=== PATIENT | female | born 1970 | race African-American/Black ===

== ENCOUNTER 2017-05-10 16:51 | Emergency (ER) | payer SELFPAY ==
[~2017-05-10] VITALS: Ht 167.6 cm; Wt 77.1 kg
[2017-05-10] MEDS ORDERED: NKM (17:04)
[2017-05-10 17:33] VITALS: BP 136/77
[2017-05-10] MEDS ORDERED: Ketorolac 60mg Inj IM ONE (18:15)
--- NOTE | 2017-05-10 18:52 | Emergency Room Report ---
History of Present Illness General Chief Complaint: Back Pain-No Injury Source: Patient (Cece Sow) Present Illness HPI 47 YO Female presents to ED c/o left sided 10/10 in severity low back pain x 3 days. had colonic performed 3 days ago, has hx of sciatica. no trauma or falls.She denies abdominal tenderness or abdominal pain. Denies nausea, vomiting, diarrhea, constipation. Patient denies history of kidney stones. Denies dysuria, hematuria, radiation or migration of pain. Patient reports she also has posterior tenderness to palpation of the left side of the back Denies numbness tingling or loss of sensation or gross motor movements of the extremities, incontinence of bowel or bladder. Denies CP, Palpitations, LOC , AMS, dizziness, Changes in Vision, Sensation, paresthesias, or a sudden severe headache. (Cece Sow) Allergies: Uncoded Allergies: TB SKIN TEST (Allergy, Unknown, 05/10/17) Patient History Past Medical History: see triage record Past Surgical History: none Pertinent Family History: none Last Menstrual Period: hysterectomy 07/2014 Now: No : 2 Para: 2 Reviewed Nursing Documentation: PMH: Agreed; PSxH: Agreed (Cece Sow) Nursing Documentation-PMH Past Medical History: No History, Except For (Cece Sow) Review of Systems All Other Systems: negative except mentioned in HPI (Cece Sow) Physical Exam Vital Signs Date Time Temp Pulse Resp B/P (MAP) Pulse Ox O2 Delivery O2 Flow Rate FiO2 05/10/17 16:58 98.2 85 16 136/77 98 Room Air 98.2 Sp02 EP Interpretation: reviewed, normal General Appearance: no apparent distress, alert, GCS 15, non-toxic Head: normocephalic, atraumatic ENT: hearing grossly normal, normal voice Neck: full range of motion Respiratory: lungs clear, normal breath sounds, speaking full sentences Cardiovascular #1: regular rate, rhythm Gastrointestinal: normal bowel sounds, non tender, soft, no guarding Genitourinary: normal inspection, no CVA tenderness Musculoskeletal: back normal, gait/station normal, normal range of motion, tender - Moderate tenderness to palpation to paraspinal muscles of the lower back on the left side, no spinous process tenderness, no midline tenderness. Neurologic: alert, oriented x3, responsive, motor strength/tone normal, sensory intact, normal gait, speech normal, grossly normal Psychiatric: judgement/insight normal Skin: normal color, no rash, warm/dry, well hydrated (Cece Sow) Medical Decision Making PA Attestation Dr. Gutierrez is my supervising Physician whom patient management has been discussed with. (Cece Sow) Diagnostic Impression: Primary Impression: Back pain Qualified Codes: M54.5 - Low back pain ER Course 47 YO Female presents to ED c/o left sided 11/25 in severity low back pain x 3 days. had colonic performed 3 days ago, has hx of sciatica. no trauma or falls.She denies abdominal tenderness or abdominal pain. Denies nausea, vomiting, diarrhea, constipation. Patient denies history of kidney stones. Denies dysuria, hematuria, radiation or migration of pain. Patient reports she also has posterior tenderness to palpation of the left side of the back Denies numbness tingling or loss of sensation or gross motor movements of the extremities, incontinence of bowel or bladder. Denies CP, Palpitations, LOC , AMS, dizziness, Changes in Vision, Sensation, paresthesias, or a sudden severe headache. Denies hx of cancer or recent spinal procedures. pt. reports her symptoms may have started when she dropped soap on shower floor and reached down to pick it up. Ddx considered: bowel perforation, musculo-skeletal injury, epidural abscess, fracture, sprain/strain, meningitis, spinal chord injury. -History of physical exam are most consistent with muscular injury due to reproducible pain/tenderness upon palpation. Absence of fever or urinary symptoms. Vital signs reviewed and are WNL during ED visit. Pt. is afebrile with no signs of infection No new symptoms, and denies recent trauma. No saddle anesthesia noted, Pt. denies incontinence Neurovascular is intact no appreciable CVA tenderness. * Moderate tenderness to palpation to paraspinal muscles of the lower back on the left side, no spinous process tenderness, no midline tenderness. ORDERS: -Abdominal KUB x-ray: Unremarkable no evidence of free air. Nonspecific bowel gas pattern noted. INTERVENTIONS: - Toradol IM - Tramadol PO d/w pt. conservative treatment, and to follow up with a primary care provider. pt given a list of primary care clinics for follow up. d/w pt. to return to the ED with worsening or new symptoms. DISCHARGE: At this time pt. is stable for d/c to home. Will provide printed patient care instructions, and any necessary prescriptions. Care plan and follow up instructions have been discussed with the patient prior to discharge. (Cece Sow) Other X-Ray Diagnostic Results Other X-Ray Diagnostic Results : X-Ray ordered: KUB # of Views/Limited Vs Complete: 1 View Indication: Pain EP Interpretation: Yes PA Xray: Interpretation reviewed, by supervising MD, and agrees with findings. Interpretation: nonspecific bowel gas, no sbo - no free air noted. Impression: No acute disease Electronically Signed by: Cece Sow PA-C (Cece Sow) Other X-Ray Diagnostic Results : Electronically Signed by: Joana documentation reviewed by me and is accurate, Estevan Gutierrez MD. (Estevan Gutierrez M.D.) Last Vital Signs Date Time Temp Pulse Resp B/P (MAP) Pulse Ox O2 Delivery O2 Flow Rate FiO2 05/10/17 18:37 98.2 05/10/17 17:33 85 16 136/77 98 Room Air (Cece Sow.A.) Last Vital Signs Date Time Temp Pulse Resp B/P (MAP) Pulse Ox O2 Delivery O2 Flow Rate FiO2 05/10/17 19:06 98.2 85 16 136/77 98 Room Air 98.2 (Estevan Gutierrez M.D.) Disposition: HOME, SELF-CARE Condition: Stable Scripts Ibuprofen* (MOTRIN*) 600 Mg Tablet 600 MG ORAL THREE TIMES A DAY, #20 TAB 0 Refills Prov: Cece Sow P.A. 05/10/17 Lidocaine (Lidoderm) 1 Each Adh..patch 1 PATCH TOPIC DAILY, #30 PATCH 0 Refills Patch(es) may remain in place for up to 12 hours in any 24-hour period. Prov: Cece Sow P.A. 05/10/17 Methocarbamol* (ROBAXIN*) 500 Mg Tablet 1000 MG PO TID, #42 TAB 0 Refills Prov: Cece Sow P.A. 05/10/17 Referrals: NOT CHOSEN [facility]/,REFERRING (PCP) Departure Forms: Return to Work Return to Work Date: May 13, 2017 Work Restrictions: No Heavy Lifting, No Prolonged Standing Other Restrictions: light duty x 1 week. Return to Full Activity: May 20, 2017 Patient Instructions: Back Pain, Adult, Sciatica Additional Instructions: Take medications as directed. Follow up with a Primary Care Provider in 3-5 days, even if your symptoms have resolved. --Please review list of primary care clinics, if you do not already have a primary care provider Return sooner to ED if new symptoms occur, or current symptoms become worse. Do not drink alcohol, drive, or operate heavy machinery while taking Robaxin as this may cause drowsiness. - Please note that this Emergency Department Report was dictated using [employer] machinery mechanic technology software, occasionally this can lead to erroneous entry secondary to interpretation by the dictation equipment. Cece Sow May 10, 2017 18:52 Estevan Gutierrez M.D. May 11, 2017 06:12
[2017-05-10] MEDS ORDERED: LIDODERM700 M1 TOPIC (18:56)
[2017-05-10] MEDS ORDERED: IBUPROFEN600 MG ORAL (18:56)
[2017-05-10] MEDS ORDERED: ROBAXIN500 MG PO (18:56)
[2017-05-10] MEDS ORDERED: traMADol 50mg tab ORAL ONE (19:00)
[2017-05-10 19:06] VITALS: BP 136/77
--- NOTE | 2017-05-11 09:39 | Diagnostic Imaging Report ---
Indication: Abdominal pain Technique: Supine view of the abdomen Comparison: none Findings: The stomach appears to be filled with food. The bowel gas pattern is unremarkable. No unusual masses or calcifications. Impression: No acute process
== END 2017-05-10 19:07 | disposition home or self-care (01) ==
LOC: EMR 17:33
DX: M54.5 Low back pain (principal); Z90.710 Acquired absence of both cervix and uterus
CPT/HCPCS: 74018; 96372; 99284

== ENCOUNTER 2017-05-13 23:29 | Emergency (ER) | payer SELFPAY ==
[~2017-05-13] VITALS: Ht 167.6 cm; Wt 77.1 kg
[~2017-05-13 23:29] MED LIST: IBUPROFEN600 MG ORAL; LIDODERM700 M1 TOPIC; NKM; ROBAXIN500 MG PO
[2017-05-13 23:35] VITALS: BP 118/74
[2017-05-13] MEDS ORDERED: Methocarbamol 750mg tab ORAL ONE (23:45)
[2017-05-13] MEDS ORDERED: Ketorolac 30mg Inj IM ONE (23:45)
--- NOTE | 2017-05-13 23:48 | Emergency Room Report ---
History of Present Illness General Chief Complaint: Lower Back Pain or Injury Source: Patient Present Illness HPI 47-year-old female p/w back pain for 7 days. Pain is localized to bilateral lower back, sharp in nature, radiating down leg. Movement worsens pain. Patient states that in her job she frequently picks up many things and has vigorous physical activity. There are no alleviating factors Patient was recently seen in the ER 3 days ago, got prescriptions for medications but could not fill them due to her insurance Patient has experienced this similar pain in the past. Denies trauma. Denies lower extremity weakness/numbness, no bowel/bladder retention or incontinence, saddle anesthesia. Denies fever, chills, abdominal pain, n/v, dysuria/hematuria. No history of IVDA Allergies: Uncoded Allergies: TB SKIN TEST (Allergy, Unknown, 05/10/17) Patient History Past Medical History: see triage record Past Surgical History: none Pertinent Family History: none Last Menstrual Period: had hysterectomy Reviewed Nursing Documentation: PMH: Agreed; PSxH: Agreed Review of Systems All Other Systems: negative except mentioned in HPI Physical Exam Vital Signs Date Time Temp Pulse Resp B/P (MAP) Pulse Ox O2 Delivery O2 Flow Rate FiO2 05/13/17 23:32 98.5 75 18 118/74 98 Room Air 98.4 Sp02 EP Interpretation: reviewed, normal General Appearance: alert, GCS 15, non-toxic, mild distress Head: normocephalic, atraumatic Eyes: bilateral eye normal inspection, bilateral eye PERRL, bilateral eye EOMI ENT: normal ENT inspection, normal pharynx, normal voice, moist mucus membranes Neck: normal inspection, full range of motion, supple Respiratory: normal inspection, lungs clear, normal breath sounds, no respiratory distress, no retraction, no wheezing, speaking full sentences, chest symmetrical Cardiovascular #1: normal inspection, regular rate, rhythm, no edema, normal capillary refill Cardiovascular #2: 2+ radial (R), 2+ radial (L) Gastrointestinal: normal inspection, non tender, soft, non-distended, no guarding Musculoskeletal: other - Bilateral lower lumbar paraspinal tenderness, no midline tenderness, full range of motion all extremities, gait normal Neurologic: normal inspection, alert, oriented x3, responsive, motor strength/ tone normal, sensory intact, normal gait, speech normal Psychiatric: normal inspection, judgement/insight normal, memory normal Skin: normal inspection, normal color, no rash, warm/dry, well hydrated, normal turgor Medical Decision Making Diagnostic Impression: Primary Impression: Low back pain ER Course 39-year-old female with one week of back pain DDX: Likely musculoskeletal back pain vs. muscular strain vs. sciatica Lumbar fracture is unlikely given patients age, no midline tenderness, no history of trauma, and that patient is ambulatory. Therefore, at this time no imaging is indicated Serious diagnoses such as cord compression, epidural abscess is unlikely in this patient given the clinical scenario and abscess of neurological symptoms or findings. Patient appears nontoxic. Plan: Toradol, robaxin ER course: Patient has remained nontoxic appearing and ambulatory in the ED. Pain improved w/ medications Disposition: Patient will be discharged to home, patient already has prescriptions Strict precautions discussed with patient on when to emergently return to the ED which includes severe/worsening back pain, leg weakness/numbness, urinary retention/incontinence, fever or chills, which may indicate severe illness. Patient is to follow up with their PMD within 5 days. Also told that she should likely benefit from physical therapy. Patient agrees with plan. Please note that this Emergency Department Report was dictated using [employer] personnel supervisor technology software, occasionally this can lead to erroneous entry secondary to interpretation by the dictation equipment. Last Vital Signs Date Time Temp Pulse Resp B/P (MAP) Pulse Ox O2 Delivery O2 Flow Rate FiO2 05/13/17 23:32 98.5 75 18 118/74 98 Room Air 98.4 Disposition: HOME, SELF-CARE Condition: Improved Joanna Giang M.D. May 13, 2017 23:48
[2017-05-14 00:19] VITALS: BP 118/74
== END 2017-05-14 00:20 | disposition home or self-care (01) ==
LOC: EMR 23:40
DX: M54.5 Low back pain (principal)
CPT/HCPCS: 96372; 99283; J1885

== ENCOUNTER 2017-11-02 10:27 | Emergency (ER) | payer SELFPAY ==
[~2017-11-02] VITALS: Ht 167.6 cm; Wt 81.6 kg
[2017-11-02 10:41] VITALS: BP 124/75
[2017-11-02] MEDS ORDERED: Ketorolac 60mg Inj IM ONE (10:45)
[2017-11-02] MEDS ORDERED: Cyclobenzaprine 10mg Tab ORAL ONE (12:45)
--- NOTE | 2017-11-02 13:07 | Emergency Room Report ---
History of Present Illness General Chief Complaint: Back Pain-No Injury Source: Patient Present Illness HPI This patient has a history of back pain that intermittently gets aggravated and become severe. She states she has been seen by an orthopedic surgeon. She underwent MRI of her lumbar spine and there were no abnormalities. She was told she has sciatica. She states that a week ago she had another exacerbation of her symptoms. She states she was lifting a grocery bag when she stood up the pain was severe and brought her to her knees. She states she's been uncomfortable for the past week. She has been using ibuprofen for pain. She denies tingling or numbness. She denies loss of bowel or bladder control. She denies fever or chills. She denies trauma. She denies dysuria or hematuria. She has no other complaints. Allergies: Uncoded Allergies: TB SKIN TEST (Allergy, Unknown, 05/10/17) Patient History Past Medical History: none, see triage record Past Surgical History: hysterectomy Social History: Denies: smoking, alcohol use, drug use Reviewed Nursing Documentation: PMH: Agreed; PSxH: Agreed Nursing Documentation-PMH Past Medical History: No History, Except For Review of Systems All Other Systems: negative except mentioned in HPI Physical Exam Vital Signs Date Time Temp Pulse Resp B/P (MAP) Pulse Ox O2 Delivery O2 Flow Rate FiO2 11/02/17 10:31 98.4 90 17 124/75 98 Room Air 98.4 Sp02 EP Interpretation: reviewed, normal General Appearance: no apparent distress, alert, GCS 15, non-toxic Head: normocephalic, atraumatic Eyes: bilateral eye normal inspection, bilateral eye PERRL ENT: hearing grossly normal, normal pharynx, no angioedema, normal voice Neck: full range of motion, supple/symm/no masses Respiratory: chest non-tender, lungs clear, normal breath sounds, no respiratory distress, no retraction, no accessory muscle use, speaking full sentences Cardiovascular #1: regular rate, rhythm, no edema Gastrointestinal: normal bowel sounds, non tender, soft, non-distended, no guarding, no rebound Rectal: deferred Musculoskeletal: normal range of motion, other - slow gait. +TTP over the paraspinal m of R. Lumbar spine. Neurologic: alert, oriented x3, responsive, motor strength/tone normal, sensory intact, speech normal Psychiatric: judgement/insight normal, memory normal, mood/affect normal, no suicidal/homicidal ideation Skin: normal color, no rash, warm/dry, well hydrated Medical Decision Making Diagnostic Impression: Primary Impression: Back pain ER Course This patient has a clinical presentation consistent with mechanical back pain. There are no red flags on physical exam. The patient denies any concerning features such as trauma, fevers, night sweats, history of malignancy, pain worse at night, IV drug abuse, urinary/fecal incontinence or retention, focal weakness or change in sensation, or refractory pain. Given these pertinent negatives in the history and physical exam an emergent cause of the back pain such as epidural abscess, metastasis to bone, cauda equina syndrome, and fracture is less likely. I also doubt emergent cardiovascular cause of back pain such as aortic dissection a ruptured abdominal aortic aneurysm given patient with equal pulses in all 4 extremities with no diastolic murmur or pulsatile abdominal mass. The patient was counseled that, though unlikely, the possibility of an emergent cause of back pain may still be present and that the patient should return immediately if symptoms persist or worsen. The symptoms are reproducible with movement. Patient had a benign evaluation and neurologic examination. No emergency etiology was identified. Last Vital Signs Date Time Temp Pulse Resp B/P (MAP) Pulse Ox O2 Delivery O2 Flow Rate FiO2 11/02/17 12:55 98.4 11/02/17 10:41 17 124/75 98 Room Air 11/02/17 10:31 90 Status: improved Disposition: HOME, SELF-CARE Condition: Improved Referrals: NOT CHOSEN IPA/MD,REFERRING (PCP) Patient Instructions: Back Pain, Adult Kayce Lara DO Nov 02, 2017 13:07
[2017-11-02] MEDS ORDERED: TRAMADOL HCL50 MG ORAL (13:09)
[2017-11-02] MEDS ORDERED: LIDODERM700 M1 TOPIC (13:09)
[2017-11-02] MEDS ORDERED: IBUPROFEN800 MG ORAL (13:09)
[2017-11-02] MEDS ORDERED: CYCLOBENZAPRINE10 MG ORAL (13:14)
[2017-11-02 13:19] VITALS: BP 133/77
== END 2017-11-02 13:21 | disposition home or self-care (01) ==
LOC: EMR 12:26
DX: M54.9 Dorsalgia, unspecified (principal)
CPT/HCPCS: 96372; 99283